=== PATIENT | male | born 1945 | race Caucasian/White ===

== ENCOUNTER 2021-06-30 12:15 | Emergency (ER) | payer OTHER ==
[~2021-06-30] VITALS: Wt 73.0 kg
[~2021-06-30 12:15] MED LIST: BACTRIM DS 8001 TAB PO; DARVOCET N 1001 TAB PO; KEFLEX500 MG PO; MEDROL DOSEPAK4 MG PO; MIRALAX POWDER17 G1 PO; MOTRIN800 MG PO; PEPCID20 MG PO; PEPTO BISMOL262 MG PO; PROTONIX TR40 M1 PO; VICODIN ES 7501 TAB PO
[2021-06-30 13:12] LABS: BASO % 0.5 % (0.0-1.0); EOS # 0.1 10*3/uL (0.0-0.4); HEMATOCRIT 44.3 % (42.0-52.0); LYMPH # 1.7 10*3/uL (1.3-4.4); LYMPH % 22.7 % (27.0-41.0); MEAN CELL VOLUME 80.5 fl (80.0-94.0); MEAN CORPUSCULAR HGB 24.9 pg (27.0-31.0); MEAN CORPUSCULAR HGB CONC 30.9 g/dl (33.0-37.0); MEAN PLATELET VOLUME 9.3 fl (9.6-12.3); MONO # 0.9 10*3/uL (0.1-1.0); MONO % 11.5 % (3.0-9.0); NEUT # 4.7 10*3/uL (2.3-7.9); NEUT % 63.6 % (47.0-73.0); PLATELET COUNT AUTOMATED 352 10*3/uL (130-400); RED CELL DISTRI WIDTH 17.3 % (0-14.5); WHITE BLOOD COUNT 7.4 10*3/uL (4.8-10.8)
[2021-06-30 13:33] LABS: INTERNATIONAL NORM RATIO 1.1 (2.0-3.5)
[2021-06-30 13:34] LABS: ALBUMIN 2.2 gm/dl (3.1-4.5); ALKALINE PHOSPHATASE 60 U/L (45-117); BUN 15 mg/dl (7-24); CHLORIDE 103 mmol/L (98-107); POTASSIUM 3.7 mmol/L (3.5-5.1); SGOT/AST 16 IU/L (3-35); SGPT/ALT 25 U/L (12-78); SODIUM 135 mmol/L (136-145); TOTAL PROTEIN 8.4 gm/dL (6.4-8.2)
[2021-06-30] MEDS ORDERED: ZITHROMAX250 MG PO ×2 (15:45)
== END 2021-06-30 16:42 | disposition home or self-care (01) ==
LOC: ED 12:15
PROVIDERS: Physician Assistant
DX: U07.1 COVID-19 (principal); J12.82 Pneumonia due to coronavirus disease 2019; K21.9 Gastro-esophageal reflux disease without esophagitis; J44.9 Chronic obstructive pulmonary disease, unspecified; F17.200 Nicotine dependence, unspecified, uncomplicated

== ENCOUNTER 2023-07-10 17:41 | Inpatient (IN) | payer MEDICARE ==
[~2023-07-10] VITALS: Ht 182.8 cm; Wt 82.7 kg
[~2023-07-10 17:41] MED LIST changes: +DECADRON6 M1 PO; +ZITHROMAX250 MG PO
[2023-07-10 17:50] VITALS: BP 151/73
[2023-07-10 18:23] LABS: BASO # 0.1 10*3/uL (0.0-0.1); BASO % 0.4 % (0.0-1.0); EOS % 0.1 % (1.0-4.0); HEMATOCRIT 43.4 % (42.0-52.0); LYMPH # 0.8 10*3/uL (1.3-4.4); LYMPH % 5.2 % (27.0-41.0); MEAN CELL VOLUME 88.4 fl (80.0-94.0); MEAN CORPUSCULAR HGB 28.1 pg (27.0-31.0); MEAN CORPUSCULAR HGB CONC 31.8 g/dl (33.0-37.0); MEAN PLATELET VOLUME 9.7 fl (9.6-12.3); MONO # 0.9 10*3/uL (0.1-1.0); MONO % 5.9 % (3.0-9.0); NEUT % 88.1 % (47.0-73.0); PLATELET COUNT AUTOMATED 207 10*3/uL (130-400); RED BLOOD COUNT 4.91 10*6/uL (4.50-5.90); RED CELL DISTRI WIDTH 13.1 % (0-14.5); WHITE BLOOD COUNT 14.7 10*3/uL (4.8-10.8)
[2023-07-10 18:34] LABS: ACT PARTIAL THROMBO TIME 21.7 SECONDS (20.0-32.1)
[2023-07-10 18:56] LABS: ALKALINE PHOSPHATASE 85 U/L (46-116); BUN 18 mg/dl (9-23); CHLORIDE 103 mmol/L (98-107); CPK 480 U/L (34-171); LIPASE 25 U/L (12-53); SGPT/ALT 10 U/L (5-49); TOTAL PROTEIN 8.1 gm/dL (6.0-8.0)
[2023-07-10 20:11] VITALS: BP 153/103
[2023-07-10 21:22] LABS: BILIRUBIN Negative (Negative); BLOOD 3+ (Negative); CLARITY Cloudy (Clear); COLOR Yellow (Yellow); GLUCOSE Negative (Negative); KETONE Negative (Negative); LEUKO ESTERASE 1+ (Negative); NITRITE Negative (Negative); SPECIFIC GRAVITY 1.015 (1.001-1.030)
[2023-07-10 21:45] LABS: BACTERIA 4+; EPITHELIAL CELLS 0-2; MUCOUS TRACE; RBC 21-30 rbc/hpf (0-2); WBC 31-40 wbc/hpf (0-5)
[2023-07-10] MEDS ORDERED: Ceftriaxone Sodium 1 GM/10 ML SYR IV ONE (21:55)
[2023-07-10] MEDS ORDERED: SODIUM CHLORIDE 0.9% 1,000 ML IV SCH ×2 (21:55→23:15)
[2023-07-10] MEDS ORDERED: MORPHINE Sulfate 2 MG/ML SYR IV PRN (23:05)
[2023-07-10] MEDS ORDERED: TEMAZEPAM 15 MG CAP PO PRN (23:05)
[2023-07-10] MEDS ORDERED: Acetaminophen/Hydrocodone 5 MG/325 MG TABLET PO PRN (23:05)
[2023-07-10] MEDS ORDERED: BISACODYL 5 MG TAB PO PRN (23:05)
[2023-07-10] MEDS ORDERED: BISACODYL 10 MG SUPP R PRN (23:05)
[2023-07-10] MEDS ORDERED: Magnesium Hydroxide 30 ML UDC PO PRN (23:05)
[2023-07-10] MEDS ORDERED: Pantoprazole Sodium 40 MG TAB PO PRN (23:10)
[2023-07-10 23:24] VITALS: BP 100/52
[2023-07-11] MEDS ORDERED: MULTIVITAMIN IV ONE (00:15)
[2023-07-11] MEDS ORDERED: MULTIVITAMIN CONCENTRATE (IV) 10 ML,Thiamine 100 MG,FOLIC ACID 1 MG in SODIUM CHLORIDE ... IV ONE (00:25)
[2023-07-11 03:34] VITALS: BP 154/62
[2023-07-11] MEDS ORDERED: LORazepam 1 MG TAB PO SCH (04:00)
[2023-07-11 04:26] LABS: BASO # 0.1 10*3/uL (0.0-0.1); BASO % 0.7 % (0.0-1.0); EOS % 0.1 % (1.0-4.0); HEMATOCRIT 38.3 % (42.0-52.0); LYMPH # 1.2 10*3/uL (1.3-4.4); LYMPH % 12.4 % (27.0-41.0); MEAN CELL VOLUME 89.5 fl (80.0-94.0); MEAN CORPUSCULAR HGB 28.7 pg (27.0-31.0); MEAN CORPUSCULAR HGB CONC 32.1 g/dl (33.0-37.0); MEAN PLATELET VOLUME 9.3 fl (9.6-12.3); MONO # 1.1 10*3/uL (0.1-1.0); MONO % 11.4 % (3.0-9.0); NEUT # 7.5 10*3/uL (2.3-7.9); PLATELET COUNT AUTOMATED 201 10*3/uL (130-400); RED BLOOD COUNT 4.28 10*6/uL (4.50-5.90); RED CELL DISTRI WIDTH 13.3 % (0-14.5); WHITE BLOOD COUNT 9.9 10*3/uL (4.8-10.8)
[2023-07-11 04:54] LABS: ALKALINE PHOSPHATASE 67 U/L (46-116); BUN 15 mg/dl (9-23); CHLORIDE 106 mmol/L (98-107); CHOLESTEROL 144 mg/dL (<200); LDL CHOLESTEROL 101 mg/dL (9-159); POTASSIUM 3.8 mmol/L (3.4-5.1); SGPT/ALT 18 U/L (5-49); TOTAL PROTEIN 6.9 gm/dL (6.0-8.0); TRIGLYCERIDES 74 mg/dl (<150)
[2023-07-11 06:39] VITALS: BP 160/109
[2023-07-11 06:39] LABS: VITAMIN D, 25-HYDROXY 14.9 ng/mL (30-100)
[2023-07-11] MEDS ORDERED: Cholecalciferol 2,000 UNIT TABLET (50 MCG) PO SCH (10:00)
[2023-07-11] MEDS ORDERED: Enoxaparin Sodium 40 MG/0.4 ML SYR SC SCH (10:00)
[2023-07-11] MEDS ORDERED: Ceftriaxone Sodium 1 GM in SYRINGE INFUSION 10 ML IV SCH (10:00)
[2023-07-11] MEDS ORDERED: Thiamine 200 MG/2 ML VIAL IV ONE (10:06)
[2023-07-11] MEDS ORDERED: FOLIC ACID 50 MG/10 ML VIAL IV ONE (10:06)
[2023-07-11] MEDS ORDERED: MULTIVITAMIN CONCENTRATE (IV) 10 ML VIAL IV ONE (10:06)
[2023-07-11] MEDS ORDERED: SODIUM CHLORIDE 0.9% 1,000 ML BAG IV ONE (10:06)
[2023-07-11 11:16] LABS: URINE AMPHETAMINES Negative (1000ng/ml); URINE BARBITURATES Negative (200ng/ml); URINE BENZODIAZEPINES Negative (200ng/ml); URINE CANNABINOIDS (THC) Negative (50ng/ml); URINE COCAINE Negative (300ng/ml); URINE METHADONE Negative (300ng/ml); URINE OPIATES Negative (300ng/ml); URINE PHENCYCLIDINE Negative (25ng/ml)
[2023-07-11 16:35] VITALS: BP 135/75
[2023-07-11 18:15] VITALS: BP 154/73
[2023-07-11 20:00] VITALS: BP 147/57
[2023-07-12 00:15] VITALS: BP 156/82
[2023-07-12 06:27] LABS: BASO # 0.1 10*3/uL (0.0-0.1); BASO % 0.6 % (0.0-1.0); EOS # 0.1 10*3/uL (0.0-0.4); EOS % 0.8 % (1.0-4.0); HEMATOCRIT 40.9 % (42.0-52.0); MEAN CELL VOLUME 91.1 fl (80.0-94.0); MEAN CORPUSCULAR HGB 28.5 pg (27.0-31.0); MEAN CORPUSCULAR HGB CONC 31.3 g/dl (33.0-37.0); MEAN PLATELET VOLUME 9.5 fl (9.6-12.3); MONO # 1.3 10*3/uL (0.1-1.0); MONO % 12.8 % (3.0-9.0); NEUT # 6.4 10*3/uL (2.3-7.9); NEUT % 65.5 % (47.0-73.0); PLATELET COUNT AUTOMATED 203 10*3/uL (130-400); RED BLOOD COUNT 4.49 10*6/uL (4.50-5.90); RED CELL DISTRI WIDTH 13.2 % (0-14.5); WHITE BLOOD COUNT 9.8 10*3/uL (4.8-10.8)
[2023-07-12 06:48] LABS: BUN 10 mg/dl (9-23); CHLORIDE 105 mmol/L (98-107); POTASSIUM 3.9 mmol/L (3.4-5.1)
[2023-07-12 08:00] VITALS: BP 123/73
[2023-07-12] MEDS ORDERED: SODIUM CHLORIDE 0.9% 1,000 ML IV ONE (11:40)
[2023-07-12 12:00] VITALS: BP 134/62
[2023-07-12] MEDS ORDERED: LORazepam 1 MG TAB PO SCH ×2 (12:00)
[2023-07-12 16:00] VITALS: BP 141/62
[2023-07-12] MEDS ORDERED: Menthol/Zinc Oxide 4 GM THIN T SCH (18:00)
[2023-07-12 20:20] VITALS: BP 132/70
[2023-07-12] MEDS ORDERED: Albuterol Sulf/Ipratropium 3 ML VIAL NEB ONE (20:40)
[2023-07-12] MEDS ORDERED: NYSTATIN 15 GM BOT T SCH (22:00)
[2023-07-13 00:11] VITALS: BP 137/68
[2023-07-13] MEDS ORDERED: LORazepam 1 MG TAB PO PRN (06:00)
[2023-07-13 06:11] LABS: BASO % 0.5 % (0.0-1.0); EOS # 0.2 10*3/uL (0.0-0.4); HEMATOCRIT 39.3 % (42.0-52.0); LYMPH # 1.7 10*3/uL (1.3-4.4); MEAN CELL VOLUME 90.1 fl (80.0-94.0); MEAN CORPUSCULAR HGB 28.2 pg (27.0-31.0); MEAN CORPUSCULAR HGB CONC 31.3 g/dl (33.0-37.0); MEAN PLATELET VOLUME 9.1 fl (9.6-12.3); MONO # 0.8 10*3/uL (0.1-1.0); MONO % 11.1 % (3.0-9.0); NEUT # 4.7 10*3/uL (2.3-7.9); NEUT % 63.1 % (47.0-73.0); PLATELET COUNT AUTOMATED 197 10*3/uL (130-400); RED BLOOD COUNT 4.36 10*6/uL (4.50-5.90); RED CELL DISTRI WIDTH 13.2 % (0-14.5); WHITE BLOOD COUNT 7.5 10*3/uL (4.8-10.8)
[2023-07-13 06:14] LABS: ALKALINE PHOSPHATASE 56 U/L (46-116); BUN 13 mg/dl (9-23); CHLORIDE 106 mmol/L (98-107); POTASSIUM 3.8 mmol/L (3.4-5.1); SGPT/ALT 32 U/L (5-49); TOTAL PROTEIN 6.8 gm/dL (6.0-8.0)
[2023-07-13 08:00] VITALS: BP 142/69
[2023-07-13] MEDS ORDERED: SODIUM CHLORIDE 0.9% 1,000 ML IV ONE (08:40)
[2023-07-13 12:00] VITALS: BP 134/69
[2023-07-13 16:00] VITALS: BP 149/67
[2023-07-13 20:00] VITALS: BP 138/77
[2023-07-13] MEDS ORDERED: LORazepam 1 MG TAB PO ONE (23:55)
[2023-07-14] VITALS: BP 144/74
[2023-07-14] MEDS ORDERED: FOAM BANDAGE 4X4 T ONE (01:51)
[2023-07-14] MEDS ORDERED: HEEL PROTECTOR DEVICE ONE (01:51)
[2023-07-14] MEDS ORDERED: CHAIR CUSHION DEVICE ONE (01:51)
[2023-07-14 04:07] LABS: BASO % 0.3 % (0.0-1.0); EOS # 0.3 10*3/uL (0.0-0.4); EOS % 4.7 % (1.0-4.0); HEMATOCRIT 38.9 % (42.0-52.0); LYMPH % 28.4 % (27.0-41.0); MEAN CORPUSCULAR HGB 27.7 pg (27.0-31.0); MEAN CORPUSCULAR HGB CONC 31.1 g/dl (33.0-37.0); MEAN PLATELET VOLUME 9.3 fl (9.6-12.3); MONO # 0.8 10*3/uL (0.1-1.0); MONO % 10.9 % (3.0-9.0); NEUT # 3.9 10*3/uL (2.3-7.9); NEUT % 55.6 % (47.0-73.0); PLATELET COUNT AUTOMATED 219 10*3/uL (130-400); RED BLOOD COUNT 4.37 10*6/uL (4.50-5.90); RED CELL DISTRI WIDTH 13.2 % (0-14.5); WHITE BLOOD COUNT 7.1 10*3/uL (4.8-10.8)
[2023-07-14 04:30] LABS: ALKALINE PHOSPHATASE 56 U/L (46-116); BUN 11 mg/dl (9-23); CHLORIDE 107 mmol/L (98-107); POTASSIUM 3.5 mmol/L (3.4-5.1); SGPT/ALT 33 U/L (5-49); TOTAL PROTEIN 6.9 gm/dL (6.0-8.0)
[2023-07-14 08:00] VITALS: BP 134/70
[2023-07-14 12:00] VITALS: BP 130/65
[2023-07-14 16:00] VITALS: BP 124/70
[2023-07-14 20:00] VITALS: BP 159/79
[2023-07-15] VITALS: BP 159/77
[2023-07-15 08:00] VITALS: BP 137/63
[2023-07-15 12:00] VITALS: BP 111/58
[2023-07-15 16:00] VITALS: BP 104/54
[2023-07-15 20:00] VITALS: BP 150/78
[2023-07-16] VITALS: BP 135/56
[2023-07-16 08:00] VITALS: BP 104/50
[2023-07-16 12:00] VITALS: BP 134/66
[2023-07-16 16:00] VITALS: BP 109/50
[2023-07-16 20:00] VITALS: BP 152/66
[2023-07-17] VITALS: BP 132/47
[2023-07-17 08:00] VITALS: BP 119/67
[2023-07-17 08:15] LABS: BASO # 0.1 10*3/uL (0.0-0.1); BASO % 0.5 % (0.0-1.0); EOS # 0.3 10*3/uL (0.0-0.4); EOS % 2.7 % (1.0-4.0); HEMATOCRIT 39.5 % (42.0-52.0); LYMPH # 2.9 10*3/uL (1.3-4.4); LYMPH % 27.9 % (27.0-41.0); MEAN CELL VOLUME 89.4 fl (80.0-94.0); MEAN CORPUSCULAR HGB 27.4 pg (27.0-31.0); MEAN CORPUSCULAR HGB CONC 30.6 g/dl (33.0-37.0); MEAN PLATELET VOLUME 9.3 fl (9.6-12.3); MONO # 0.8 10*3/uL (0.1-1.0); MONO % 7.8 % (3.0-9.0); NEUT # 6.4 10*3/uL (2.3-7.9); NEUT % 60.6 % (47.0-73.0); PLATELET COUNT AUTOMATED 285 10*3/uL (130-400); RED BLOOD COUNT 4.42 10*6/uL (4.50-5.90); RED CELL DISTRI WIDTH 13.2 % (0-14.5); WHITE BLOOD COUNT 10.5 10*3/uL (4.8-10.8)
[2023-07-17 08:35] LABS: BUN 19 mg/dl (9-23); CHLORIDE 106 mmol/L (98-107); POTASSIUM 3.3 mmol/L (3.4-5.1)
[2023-07-17] MEDS ORDERED: POTASSIUM CHLORIDE 20 MEQ TAB PO ONE (09:40)
[2023-07-17 12:00] VITALS: BP 122/64
[2023-07-17 16:00] VITALS: BP 136/57
[2023-07-17 20:00] VITALS: BP 140/73
[2023-07-18] VITALS: BP 127/56
[2023-07-18 09:31] VITALS: BP 149/63
[2023-07-18 11:45] VITALS: BP 132/97
[2023-07-18] MEDS ORDERED: VITAMIN D350 MCG PO (14:08)
== END 2023-07-18 18:34 | DRG 872 ==
LOC: ED 17:41 → 5E 22:06 → EDHOLD 22:06 → 5E 07-11 17:20
PROVIDERS: Internal Medicine; Registered Nurse; Student in an Organized Health Care Education/Training Program; ADMIT Family Medicine; ATTEND Family Medicine
PROC: 0HBRXZZ Excision of Toe Nail, External Approach (ICD-10-PCS; principal; 2023-07-12)
PROC: 0HBRXZZ Excision of Toe Nail, External Approach (ICD-10-PCS; 2023-07-12)
PROC: 0HBRXZZ Excision of Toe Nail, External Approach (ICD-10-PCS; 2023-07-12)
PROC: 0HBRXZZ Excision of Toe Nail, External Approach (ICD-10-PCS; 2023-07-12)
PROC: 0HBRXZZ Excision of Toe Nail, External Approach (ICD-10-PCS; 2023-07-12)
PROC: 0HBRXZZ Excision of Toe Nail, External Approach (ICD-10-PCS; 2023-07-12)
PROC: 0HBRXZZ Excision of Toe Nail, External Approach (ICD-10-PCS; 2023-07-12)
PROC: 0HBRXZZ Excision of Toe Nail, External Approach (ICD-10-PCS; 2023-07-12)
PROC: 0HBRXZZ Excision of Toe Nail, External Approach (ICD-10-PCS; 2023-07-12)
PROC: 0HBRXZZ Excision of Toe Nail, External Approach (ICD-10-PCS; 2023-07-12)
DX: A41.9 Sepsis, unspecified organism (principal); N39.0 Urinary tract infection, site not specified; E44.0 Moderate protein-calorie malnutrition; F10.239 Alcohol dependence with withdrawal, unspecified; E87.20 Acidosis, unspecified; E87.1 Hypo-osmolality and hyponatremia; R26.81 Unsteadiness on feet; S00.93XA Contusion of unspecified part of head, initial encounter; F10.229 Alcohol dependence with intoxication, unspecified; B35.1 Tinea unguium; W18.39XA Other fall on same level, initial encounter; F17.210 Nicotine dependence, cigarettes, uncomplicated; K21.9 Gastro-esophageal reflux disease without esophagitis; L89.511 Pressure ulcer of right ankle, stage 1; R82.71 Bacteriuria; R31.9 Hematuria, unspecified; R73.9 Hyperglycemia, unspecified; I10 Essential (primary) hypertension; Z71.6 Tobacco abuse counseling; Y93.9 Activity, unspecified; Y92.89 Other specified places as the place of occurrence of the external cause; Y99.8 Other external cause status; Z68.24 Body mass index [BMI] 24.0-24.9, adult

== ENCOUNTER → 2023-08-30 | Outpatient (CLI) | payer MEDICARE ==
[~2023-08-30] MED LIST changes: +VITAMIN D350 MCG PO
[2023-08-30 12:46] LABS: BASO # 0.1 10*3/uL (0.0-0.1); BASO % 0.8 % (0.0-1.0); EOS # 0.2 10*3/uL (0.0-0.4); HEMATOCRIT 44.7 % (42.0-52.0); LYMPH # 2.4 10*3/uL (1.3-4.4); LYMPH % 25.8 % (27.0-41.0); MEAN CELL VOLUME 84.7 fl (80.0-94.0); MEAN CORPUSCULAR HGB 25.8 pg (27.0-31.0); MEAN CORPUSCULAR HGB CONC 30.4 g/dl (33.0-37.0); MEAN PLATELET VOLUME 9.5 fl (9.6-12.3); MONO # 0.8 10*3/uL (0.1-1.0); MONO % 8.7 % (3.0-9.0); NEUT # 5.8 10*3/uL (2.3-7.9); NEUT % 62.4 % (47.0-73.0); PLATELET COUNT AUTOMATED 253 10*3/uL (130-400); RED BLOOD COUNT 5.28 10*6/uL (4.50-5.90); RED CELL DISTRI WIDTH 14.5 % (0-14.5); WHITE BLOOD COUNT 9.3 10*3/uL (4.8-10.8)
[2023-08-30 13:16] LABS: VITAMIN D, 25-HYDROXY 38.3 ng/mL (30-100)
[2023-08-30 13:17] LABS: ALKALINE PHOSPHATASE 75 U/L (46-116); BUN 22 mg/dl (9-23); CHLORIDE 107 mmol/L (98-107); CHOLESTEROL 183 mg/dL (<200); FREE T4 1.12 ng/dl (0.89-1.76); LDL CHOLESTEROL 123 mg/dL (9-159); POTASSIUM 3.9 mmol/L (3.4-5.1); SGPT/ALT 8 U/L (5-49); TOTAL PROTEIN 7.8 gm/dL (6.0-8.0); TRIGLYCERIDES 124 mg/dl (<150)
== END | disposition home or self-care (01) ==
LOC: LAB 12:19
PROVIDERS: ATTEND Internal Medicine
DX: R05.3 Chronic cough (principal); G30.0 Alzheimer's disease with early onset; R32 Unspecified urinary incontinence

== ENCOUNTER → 2024-01-16 | Outpatient (CLI) | payer MEDICARE | END | disposition home or self-care (01) | LOC: US 02:44 | PROVIDERS: ATTEND Internal Medicine | DX: N30.01 Acute cystitis with hematuria (principal); N28.1 Cyst of kidney, acquired; N13.30 Unspecified hydronephrosis ==

== ENCOUNTER → 2024-02-14 | Outpatient (CLI) | payer MEDICARE ==
[~2024-02-14] MED LIST changes: +IOHEXOL 350 MG/ML 100 ML VIAL IV ONE
== END | disposition home or self-care (01) ==
LOC: CT 02:10
PROVIDERS: ATTEND Urology
DX: N28.1 Cyst of kidney, acquired (principal); N13.30 Unspecified hydronephrosis; N40.0 Benign prostatic hyperplasia without lower urinary tract symptoms; I25.10 Atherosclerotic heart disease of native coronary artery without angina pectoris; N32.9 Bladder disorder, unspecified

== ENCOUNTER → 2024-09-04 | Outpatient (CLI) | payer MEDICARE ==
[~2024-09-04] MED LIST changes: +B-1100 M1 PO; +CIPRO500 MG PO; +DONEPEZIL HYDRO10 M1 PO; -IOHEXOL 350 MG/ML 100 ML VIAL IV ONE; +NAMENDA-5 PO; +NATURE'S BLEND F1 MG PO; +TOBRAMYCIN5 ML OP
[2024-09-04 15:34] LABS: BILIRUBIN Negative (Negative); BLOOD 3+ (Negative); CLARITY Turbid (Clear); COLOR Yellow (Yellow); GLUCOSE Negative (Negative); KETONE Negative (Negative); LEUKO ESTERASE 3+ (Negative); NITRITE Positive (Negative); SPECIFIC GRAVITY 1.015 (1.001-1.030)
[2024-09-04 15:34] LABS: BASO # 0.1 10*3/uL (0.0-0.1); BASO % 0.8 % (0.0-1.0); EOS # 0.3 10*3/uL (0.0-0.4); EOS % 3.1 % (1.0-4.0); HEMATOCRIT 33.8 % (42.0-52.0); MEAN CORPUSCULAR HGB 20.5 pg (27.0-31.0); MEAN CORPUSCULAR HGB CONC 28.1 g/dl (33.0-37.0); MEAN PLATELET VOLUME 9.6 fl (9.6-12.3); MONO % 9.8 % (3.0-9.0); NEUT % 56.8 % (47.0-73.0); PLATELET COUNT AUTOMATED 312 10*3/uL (130-400); RED BLOOD COUNT 4.63 10*6/uL (4.50-5.90); RED CELL DISTRI WIDTH 17.3 % (0-14.5); WHITE BLOOD COUNT 10.5 10*3/uL (4.8-10.8)
[2024-09-04 16:16] LABS: ALKALINE PHOSPHATASE 62 U/L (46-116); BUN 24 mg/dl (9-23); CHLORIDE 108 mmol/L (98-107); POTASSIUM 3.7 mmol/L (3.4-5.1); TOTAL PROTEIN 7.2 gm/dL (6.0-8.0)
[2024-09-04 16:20] LABS: SGPT/ALT < 7 U/L (5-49)
[2024-09-04 16:54] LABS: BACTERIA 4+; RBC 31-40 rbc/hpf (0-2); WBC TNTC wbc/hpf (0-5)
== END | disposition home or self-care (01) ==
LOC: LAB 15:02
PROVIDERS: ATTEND Internal Medicine
DX: N32.89 Other specified disorders of bladder (principal); D50.9 Iron deficiency anemia, unspecified; F02.B0 Dementia in other diseases classified elsewhere, moderate, without behavioral disturbance, psychotic disturbance, mood disturbance, and anxiety